=== PATIENT | male | born 1970 | race Caucasian/White ===

== ENCOUNTER → 2019-04-05 07:46 | Outpatient (CLI) | payer OTHER, SELFPAY ==
--- NOTE | ~2019-04-05 | CT_ITS ---
EXAMINATION: CT chest wo con DATE: 04/05/2019 08:07 INDICATION: Lung nodule TECHNIQUE: Computed tomography (CT) of the chest was performed without intravenous contrast. The dose -length product (DLP) was 517.14 mGy-cm. Automated exposure control and iterative reconstruction tech nique were employed. COMPARISON: 07/04/2018, 01/25/2018, 10/24/2017 FINDINGS: There is a stable 1.7 cm nodule of the left lower lobe. Additional stable nodules of the le ft lung measure up to 3 mm. No new pulmonary nodules are identified. There is mild emphysema. There i s no pleural effusion or pneumothorax. No pathologically enlarged thoracic lymph nodes are identified . The heart size is normal. There is moderate thoracic spondylosis. IMPRESSION: 1. Stable left lower lobe lung nodule, likely a hamartoma. CT follow-up in seven months (October 2019) would demonstrate two years of stability and further support a benign etiology. Reviewed, dictated and finalized at location A. [facility] IMPRESSION: 1. Stable left lower lobe lung nodule, likely a hamartoma. CT follow-up in ryland n months (October 2019) would demonstrate two years of stability and further sup port a benign etiology.
== END ==
PROVIDERS: PCP Nurse Practitioner Family; Visit Provider Nurse Practitioner Family
DX: J98.4 Other disorders of lung (principal)
CPT/HCPCS: 71250

== ENCOUNTER 2019-06-01 19:24 | Emergency (ER) | payer OTHER, SELFPAY ==
--- NOTE | 2019-06-01 19:31 | ECG_ITS ---
Measurements Intervals [place] Rate: 53 P: 44 WA: 179 QRS: -22 QRSD: 78 T: -14 QT: 395 QTc: 373 Interpretive Statements SINUS BRADYCARDIA BORDERLINE ECG Electronically Signed On 06-02-2019 7:11:53 CDT by Amandeep Wooten D.O.
[2019-06-01 19:40] VITALS: BP 154/96; PULSE 55; RESP 20; TEMP 36.7; O2SAT 98
--- NOTE | 2019-06-01 19:50 | ED.CHESTPAIN ---
HPI - Chest Pain General Chief Complaint: Chest Pain Stated Complaint: sob/chest pn Time Seen by Provider: 06/01/19 19:34 Source: patient and RN notes reviewed Mode of arrival: ambulatory Limitations: no limitations History of Present Illness HPI narrative: Patient presents today complaining of a 3-day history of intermittent shortness of breath and sternal/left chest discomfort. He describes the pain as discomfort, and dull to sharp . Both of these symptoms worsen with exertion. Denies nausea, vomiting, abdominal pain, weakness, dizziness, or lightheadedness. He does report intermittent tingling in the left arm. He reports feeling like his heart is racing 3-4 times per day since onset of symptoms. Denies cough or fever. Denies any cardiac history, hypertension, hypercholesterolemia. Patient has history of GERD and takes Nexium. 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 MD complaint: chest pain and other (Shortness of breath) Related Data Home Medications Medication Instructions Recorded Confirmed esomeprazole magnesium [Nexium 20 mg PO DAILY 01/29/19 06/01/19 24HR] Allergies Allergy/AdvReac Type Severity Reaction Status Date / Time No Known Allergies Allergy Verified 06/01/19 19:40 Review of Systems Review of Systems: Narrative: CONSTITUTIONAL: Denies body aches, fever, chills, or sweats. EYES: Denies visual changes, redness, or discharge. ENT: Denies rhinorrhea, congestion, sore throat, or otalgia. CARDIOVASCULAR: Denies chest pain, palpitations, or edema. RESPIRATORY: + Chest pain, shortness of breath GASTROINTESTINAL: Denies abdominal pain, nausea, vomiting, or diarrhea. GENITOURINARY: Denies dysuria or hematuria. SKIN: Denies rash, itching, or wounds. MUSCULOSKELETAL: Denies back pain, joint pain, or myalgia. NEUROLOGIC: Denies headache, numbness, or weakness.+ Tingling in the left arm PSYCH: Denies depression or anxiety. [facility] Past Medical History Medical History (Updated 06/01/19 @ 19:58 by Magui Car, BRAKE ADJUSTER, ) GERD (gastroesophageal reflux disease) Social History Social History Smoking status: Former smoker Second hand tobacco smoke exposure: No Smoking end date: 03/08/01 Alcohol intake: current Comments At time of signature, I have reviewed and agree with nursing past medical, surgical, social and family history unless otherwise noted. Please see nursing chart for further information. There is no relevant family history pertinent to the presenting complaint Exam Narrative: Exam Narrative: GENERAL: Well-appearing, well-nourished. HEAD: Normocephalic, atraumatic. EYES: EOMI. No redness or drainage. Conjunctivae normal. ENT: Mucous membranes pink and moist. Nares clear. NECK: Normal AROM. Supple. No lymphadenopathy. CHEST: + mildly labored when speaking. Clear to auscultation. Chest is nontender, but patient localizes discomfort to the sternum and left nipple area. HEART: + Bradycardia, heart rate 58 upon auscultation. Gallop noted. Normal peripheral pulses radial and posterior tibial bilaterally. ABDOMEN: Soft, nondistended, normal active bowel sounds.+ Mild epigastric tenderness. MUSCULOSKELETAL: No bony tenderness. Hand regulatory consultant equal and strong. Foot push and pulls equal and strong. EXTREMITIES: Normal range of motion. No edema. SKIN: Warm, dry, no rash. Capillary refill normal. No diaphoresis. NEURO: No focal deficits. Alert and oriented x3. Gait steady. PSYCH: Normal affect. No signs of depression or anxiety. Course Vital Signs Vital signs: Vital Signs Temperature 98.1 F 06/01/19 19:40 Pulse Rate 55 L 06/01/19 19:40 Respiratory Rate 20 06/01/19 19:40 Blood Pressure 154/96 H 06/01/19 19:40 Pulse Oximetry 98 06/01/19 19:40 Temperature 98.1 F 06/01/19 19:40 Pulse Rate 55 L 06/01/19 19:40 Respiratory Rate 20 06/01/19 19:40 Blood Pressure 154/96 H 06/01/19 19:40 Pulse Oximetry
== END 2019-06-01 19:54 | disposition short-term general hospital (02) ==
LOC: EXPTROY 19:29
PROVIDERS: Emergency Provider Nurse Practitioner; PCP Family Medicine
DX: R07.9 Chest pain, unspecified (principal); R06.02 Shortness of breath; R00.1 Bradycardia, unspecified; F17.200 Nicotine dependence, unspecified, uncomplicated; K21.9 Gastro-esophageal reflux disease without esophagitis
CPT/HCPCS: 93005; 99213; G0463

== ENCOUNTER 2019-06-01 20:03 | Observation (INO) | payer OTHER, SELFPAY ==
--- NOTE | ~2019-06-01 | XR_ITS ---
EXAMINATION: XR chest 2V DATE: 06/01/2019 20:46 INDICATION: Chest pain. TECHNIQUE: Frontal and lateral views of the chest were obtained. COMPARISON: Chest 2 views 06/25/2014, 04/03/2010, chest CT 04/05/2019, PET/CT 01/25/2018 FINDINGS: Again seen is a 1.5 cm nodule in basilar left lower lobe. No pleural effusion or pneumothor ax. The heart size is normal. IMPRESSION: 1. Chronic left lower lobe pulmonary nodule, likely a hamartoma. Reviewed, dictated and finalized at location A.
[2019-06-01 20:17] VITALS: BP 156/102; PULSE 51; RESP 21; TEMP 36.2; O2SAT 98
--- NOTE | 2019-06-01 20:19 | ECG_ITS ---
Measurements Intervals [place] Rate: 56 P: 49 OR: 180 QRS: -13 QRSD: 75 T: -16 QT: 394 QTc: 382 Interpretive Statements SINUS BRADYCARDIA WITH SINUS ARRHYTHMIA DELAYED PRECORDIAL R/S TRANSITION BORDERLINE T WAVE ABNORMALITY- INFERIOR LEADS BASELINE ARTIFACT- I BORDERLINE ECG Electronically Signed On 06-02-2019 7:12:48 CDT by Amandeep Wooten D.O.
--- NOTE | 2019-06-01 20:24 | ED.CHESTPAIN ---
HPI - Chest Pain General Chief Complaint: Chest Pain Stated Complaint: CP Time Seen by Provider: 06/01/19 20:06 Source: patient Mode of arrival: ambulatory Limitations: no limitations History of Present Illness HPI narrative: Pt is a 49 y/o male who presents to the ED with c/o constant mid/left chest discomfort since Wednesday. He states that he occasionally gets a sharp pain. He also reports lt arm tingling and epigastric ABD pain. His CP is aggravated with exertion. Pt denies SOB, N/V, or a cough. He denies a H/O smoking, HTN, HLD, or cardiac issues. He states that his father has a H/O cardiac issues. MD complaint: chest pain and chest discomfort Onset (ago): day(s) (3) Timing of current episode: episodic (sharp) and constant (discomfort) Pain location: substernal and left chest Pain radiation: left arm (tingling) Quality: sharp and other (discomfort) Exacerbating factors: exertion Associated symptoms: other (epigastric pain) Related Data Home Medications Medication Instructions Recorded Confirmed Nexium 24HR 20 mg PO DAILY 01/29/19 06/01/19 One-A-Day Men's 50 Plus 1 tab/day PO DAILY 06/01/19 06/01/19 Allergies Allergy/AdvReac Type Severity Reaction Status Date / Time No Known Allergies Allergy Verified 06/01/19 20:29 Review of Systems Review of Systems: All systems reviewed & are unremarkable except as noted in HPI and below Cardiovascular: Cardiovascular: Reports chest pain Respiratory: Respiratory: Denies cough and Denies dyspnea Gastrointestinal: Gastrointestinal: Reports abdominal pain (epigastric), Denies nausea and Denies vomiting Neurologic: Reports tingling (lt arm) [facility] Past Medical History Medical History (Updated 06/04/19 @ 12:16 by Jose Melo DO) GERD (gastroesophageal reflux disease) Kidney stones Surgical History Surgical History (Updated 06/01/19 @ 20:33 by Frank Snider) H/O hand surgery left H/O inguinal hernia repair H/O lateral meniscus repair of left knee Social History Social History Smoking status: Former smoker Second hand tobacco smoke exposure: No Smoking end date: 03/08/01 Alcohol intake: current Gender identity (if verbalized by the patient): Male Exam Narrative: Exam Narrative: APPEARANCE: No acute distress, nontoxic, resting in bed EYES: EOMI HEENT: Normocephalic, atraumatic, OMM RESPIRATORY: No respiratory distress Clear to auscultation bilaterally with no rhonchi wheezing or rales. CARDIOVASCULAR: Regular rate and rhythm without murmurs rubs or gallops. ABDOMINAL: Soft, nontender, nondistended, no rebound or guarding MUSCULOSKELETAl: Moves all extremities. No clubbing, cyanosis or edema. NEURO: Awake and alert. Following commands, speech normal, no focal deficits SKIN:: Warm, dry. No rashes lesions or abrasions PSYCHIATRIC: Normal affect/mood, Course Course Emergency Course: Discussed with patient and family results of workup and diagnosis. Discussed need for admission. Patient and family understand and agree to current treatment plan Consultations Consultation #1: Discussed case with Dr. Last, the steward/stewardess night. Accepted admission to the [facility]. Date: 06/01/19 Time: 21:14 Vital Signs Vital signs: Vital Signs Temperature 97.1 F L 06/01/19 20:17 Pulse Rate 51 L 06/01/19 20:17 Respiratory Rate 21 H 06/01/19 20:17 Blood Pressure 156/102 H 06/01/19 20:17 Pulse Oximetry 98 06/01/19 20:17 Temperature 98.1 F 06/02/19 07:45 Pulse Rate 66 06/02/19 10:00 Respiratory Rate 16 06/02/19 07:45 Blood Pressure 129/82 06/02/19 07:45 Pulse Oximetry 97 06/02/19 07:45 MDM - Chest Pain Lab Data Result diagrams: 06/01/19 20:33 06/01/19 20:33 Labs: Lab Results 06/01/19 06/01/19 06/01/19 Range/Units 20:33 20:33 20:33 WBC 7.9 (4.5-10.0) K/mm3 RBC 4.44 L (4.6-6.20) M/mm3 Hgb 13.5 L (14.0-18.0) g/dL Hct 40.7 L (
[2019-06-01] MEDS: ASPIRIN 81 MG CHEWABLE TABLET 324 MG PO (20:31)
[2019-06-01 20:38] VITALS: PULSE 59; O2SAT 98
[2019-06-01 20:40] LABS: Basophils Absolute Auto 0.1 K/mm3 (0.0-0.1); Basophils Percent Auto 0.6 % (0.2-1.2); Eosinophils Absolute Auto 0.2 K/mm3 (0-0.3); Eosinophils Percent Auto 2.4 % (0-4.4); Hematocrit 40.7 % (42.0-52.0); Hemoglobin 13.5 g/dL (14.0-18.0); Immature Granulocyte Absolute 0.02 K/mm3 (0.00-0.031); Immature Granulocyte Percent A 0.3 % (0-0.5); Lymphocytes Absolute Auto 2.81 K/mm3 (0.9-3.2); Lymphocytes Percent Auto 35.7 % (18.3-44.2); Mean Corpuscular HGB Conc 33.2 g/dl (32-36); Mean Corpuscular Hemoglobin 30.4 pg (26-34); Mean Corpuscular Volume 91.7 fl (80-100); Mean Platelet Volume 10.6 fl (7.4-10.4); Monocytes Absolute Auto 0.6 K/mm3 (0.1-0.6); Neutrophils Absolute Auto 4.2 K/mm3 (1.3-6.7); Platelet Count Result 210 k/mm3 (150-375); Red Blood Count 4.44 M/mm3 (4.6-6.20); Red Cell Distribution Width 12.5 % (11.5-14.5); White Blood Count 7.9 K/mm3 (4.5-10.0)
[2019-06-01 20:50] LABS: Prothrombin Time 12.8 Seconds (11.1-14.7)
[2019-06-01 20:51] LABS: Partial Thromboplastin Time 35.3 SECONDS (22.3-36.8)
[2019-06-01 20:52] LABS: Alanine Aminotransferase 19 U/L (4-50); Albumin Level 4.2 g/dL (3.5-5.1); Alkaline Phosphatase 69 U/L (38-126); Aspartate Amino Transferase 27 U/L (17-59); Bilirubin,Total 0.4 mg/dL (0.2-1.3); Blood Urea Nitrogen 15 mg/dL (9-20); Calcium 9.3 mg/dL (8.4-10.2); Carbon Dioxide 27 mmol/L (22-30); Chloride 108 mmol/L (98-107); Estimated CRCL calculation 93 ml/min; Estimated Glomerular Filt Rate > 60; Glucose 99 mg/dL (75-110); Lipase 93 U/L (23-300); Sodium 138 mmol/L (137-145)
[2019-06-01 21:00] LABS: D Dimer 0.27 ug/mL (<0.48)
[2019-06-01 21:04] LABS: Troponin I < 0.012 ng/mL (0.000-0.034)
[2019-06-01 21:21] VITALS: BP 126/85; PULSE 55; RESP 19; O2SAT 98
[2019-06-01] MEDS: KETOROLAC 30 MG/ML VIAL (*BKC) IV PUSH (21:27)
[2019-06-01 21:54] VITALS: TEMP 36.2
[2019-06-01 21:56] VITALS: BMI 31.0
[2019-06-01 22:00] VITALS: BP 170/89; PULSE 45; RESP 17; TEMP 36; O2SAT 100
--- NOTE | 2019-06-01 23:22 | ECG_ITS ---
Measurements Intervals [place] Rate: 47 P: 32 ID: [id number] QRS: -14 QRSD: 80 T: -30 QT: 408 QTc: 364 Interpretive Statements SINUS BRADYCARDIA DELAYED PRECORDIAL R/S TRANSITION CONSIDER INFERIOR INFARCT, AGE INDETERMINATE ABNORMAL ECG Electronically Signed On 06-02-2019 7:17:30 CDT by Amandeep Wooten D.O.
[2019-06-01 23:46] LABS: Cholesterol 140 mg/dL (0-200); HDL Direct 25 mg/dL; Triglycerides 108 mg/dL (<150)
[2019-06-01 23:55] LABS: Troponin I < 0.012 ng/mL (0.000-0.034)
[2019-06-01 23:57] LABS: LDL Cholesterol Direct 94 mg/dL
[2019-06-02] VITALS: BP 151/95; PULSE 51; PULSE 58; RESP 13; TEMP 36.2; O2SAT 98
--- NOTE | 2019-06-02 | EST_ITS ---
Patient Info Name: Cm Fischer Age: 49 years : 1970 Gender: Male Ht: 67 in Wt: 197 lbs BSA: 2.08 m2 Technical Quality: Good Exam Date: 06/02/2019 8:02 AM Exam Location: [facility] Patient Status: Inpatient Admit Date: 06/01/2019 Staff Ordering Physician: Joesph Last MD Dust Mill Operator: Jayla Espana RDCS Attending Provider: Leslee Mueller DO Exercise Technologist: Rodger Roger RDCS, RT Exercise Physician: Dillon Ponce MD Exam Type: CA stress echo Study Info Indications R07.89 - Other chest pain Treadmill exercise stress echocardiogram is performed. Summary 1. Normal left venticular systolic function with no regional wall motion abnormalities noted at rest. 2. No regional wall motion abnormalities noted post stress. 3. Left ventricular systolic function is normal with an estimated ejection fraction of 5560 % at rest. 4. Normal augmentation of all wall segments without evidence of ischemia with stress. Recommendations * No recommendations. Stress Echo Findings Left Ventricle Normal left venticular systolic function with no regional wall motion abnormalities noted at rest. No regional wall motion abnormalities noted post stress. Normal augmentation of all wall segments without evidence of ischemia with stress. Left ventricular systolic function is normal with an estimated ejection fraction of 5560 % at rest. Ventricles Name Value Normal LV Fractional Shortening/Ejection Fraction 2D/MM Visually Estimated EF 5,560 % 52-72 Protocol: Phillip Stress ECG Details Stage: REST Duration (min): 21 min : 23 sec Speed (mph): 0.0 Grade (%): 0 HR (bpm): 54 SBP (mmHg): 139 DBP (mmHg): 82 METS: --- Stage: REST Duration (min): 47 min : 28 sec Speed (mph): 0.0 Grade (%): 0 HR (bpm): 59 SBP (mmHg): 139 DBP (mmHg): 82 METS: --- Stage: STAGE 1 Duration (min): 1 min : 0 sec Speed (mph): 1.7 Grade (%): 10 HR (bpm): 85 SBP (mmHg): 139 DBP (mmHg): 82 METS: --- Stage: STAGE 1 Duration (min): 2 min : 0 sec Speed (mph): 1.7 Grade (%): 10 HR (bpm): 90 SBP (mmHg): 139 DBP (mmHg): 82 METS: --- Stage: STAGE 1 Duration (min): 3 min : 0 sec Speed (mph): 1.7 Grade (%): 10 HR (bpm): 91 SBP (mmHg): 165 DBP (mmHg): 94 METS: --- Stage: STAGE 2 Duration (min): 1 min : 0 sec Speed (mph): 2.5 Grade (%): 12 HR (bpm): 100 SBP (mmHg): 165 DBP (mmHg): 94 METS: --- Stage: STAGE 2 Duration (min): 2 min : 0 sec Speed (mph): 2.5 Grade (%): 12 HR (bpm): 107 SBP (mmHg): 167 DBP (mmHg): 93 METS: --- Stage: STAGE 2 Duration (min): 3 min : 0 sec Speed (mph): 2.5 Grade (%): 12 HR (bpm): 104 SBP (mmHg): 167 DBP (mmHg): 93 METS: ---
[2019-06-02 02:00] VITALS: PULSE 48
[2019-06-02 02:53] LABS: Troponin I < 0.012 ng/mL (0.000-0.034)
--- NOTE | 2019-06-02 03:21 | ECG_ITS ---
Measurements Intervals [place] Rate: 49 P: 16 PA: 196 QRS: -24 QRSD: 82 T: -16 QT: 404 QTc: 367 Interpretive Statements SINUS BRADYCARDIA DELAYED PRECORDIAL R/S TRANSITION CONSIDER INFERIOR INFARCT, AGE INDETERMINATE ABNORMAL ECG Electronically Signed On 06-02-2019 7:22:03 CDT by Amandeep Wooten D.O.
[2019-06-02 04:00] VITALS: BP 126/82; PULSE 51; RESP 16; TEMP 36.3; O2SAT 98
[2019-06-02 07:45] VITALS: BP 129/82; PULSE 52; PULSE 55; RESP 16; TEMP 36.7; O2SAT 97
--- NOTE | 2019-06-02 07:53 | PC.NURSE ---
DOWN VIA WC FOR STRESS ECHOCARDIOGRAM.
--- NOTE | 2019-06-02 08:47 | PM.SD ---
Same Day Admit/Disch: HPI History of Present Illness Chief complaint: chest pain Narrative: Cm Fischer is a 49 year old male with PMH if GERD and hx of smoking who experienced episodes of sharp chest discomfort over last few days. pt presented to [facility] last night and was admitted for observation. he denies any previuous cardiac problems. States that had stress test few years ago which was negative. Does have hyperlipidemia for which takes medications. Pt was seen and examined, chart was reviewed, case was d.w pt's nurse. [facility] Past Medical History Medical History (Updated 06/02/19 @ 09:53 by Dillon Ponce MD) GERD (gastroesophageal reflux disease) Kidney stones Surgical History Surgical History (Updated 06/01/19 @ 20:33 by Frank Snider) H/O hand surgery left H/O inguinal hernia repair H/O lateral meniscus repair of left knee Social History Social History Smoking status: Former smoker Second hand tobacco smoke exposure: No Smoking end date: 03/08/01 Alcohol intake: current Gender identity (if verbalized by the patient): Male Same Day Admit/Disch: Med Pre-admit Medications Home Medications Medication Instructions Recorded Confirmed Type Nexium 24HR 20 mg PO DAILY 01/29/19 06/01/19 History One-A-Day Men's 50 Plus 1 tab/day PO DAILY 06/01/19 06/01/19 History Exam Const: General: alert and awake; No acute distress HENMT: Head: normal to inspection and atraumatic Ears: hearing grossly normal bilaterally Face and sinus: normal facial exam Eyes: General: appearance normal, both eyes and all related structures Pupils: Equal, round and reactive pupils present EOM: EOMs intact bilaterally Neck: Neck: normal visual inspection and no JVD Chest: Chest palpation & inspection: normal inspection of the chest Resp: Effort & Inspection: normal respiratory effort and no respiratory distress Auscultation: clear to auscultation bilaterally Cardio: Jugular venous distension: no JVD Rate: regular rate Heart sounds: S1 normal heart sound present, S2 normal heart sound present and no murmurs GI: Inspection: normal to inspection GI Palp: Yes Soft to palpation, No Tenderness to palpation present (GI) and Yes No hepatosplenomegaly present Auscultation: normal bowel sounds Skin: General skin exam: normal color Neuro: Cranial nerves: Yes Equal, round and reactive pupils present Extrem: General: normal to inspection and no clubbing, cyanosis or edema DS: Data Data Completed and Pending Labs on day of discharge: Labs from last 24 hours 06/02/19 06/02/19 06/01/19 02:20 02:20 23:26 WBC RBC Hgb Hct MCV MCH MCHC RDW Plt Count MPV Immature Gran % (Auto) Neut % (Auto) Lymph % (Auto) [place] % (Auto) Eos % (Auto) Baso % (Auto) Lymph # (Auto) [place] # (Auto) Eos # (Auto) Baso # (Auto) Abs Immat Gran (auto) Absolute Neuts (auto) Absolute Nucleated RBC Nucleated RBC % PT INR APTT D-Dimer Sodium Potassium Chloride Carbon Dioxide BUN Creatinine Estim Creat Clear Calc Estimated GFR Glucose Calcium Total Bilirubin AST ALT Alkaline Phosphatase Troponin I Cancelled < 0.012 Total Protein Albumin Triglycerides 108 Cholesterol 140 LDL Cholesterol Direct 94 HDL Direct 25 Lipase 06/01/19 06/01/19 06/01/19 23:26 20:35 20:33 WBC RBC Hgb Hct MCV MCH MCHC RDW Plt Count MPV Immature Gran % (Auto) Neut % (Auto) Lymph % (Auto) [place] % (Auto) Eos % (Auto) Baso % (Auto) Lymph # (Auto) [place] # (Auto) Eos # (Auto) Baso # (Auto) Abs Immat Gran (auto) Absolute Neuts (auto) Absolute Nucleated RBC Nucleated RBC % PT INR APTT D-Dimer 0.27 Sodium Potassium Chloride
--- NOTE | 2019-06-02 08:48 | PC.NURSE ---
RETURNS VIA WC TO DIGITAL PHOTOGRAPHER 5 S/P STRESS ECHO.
[2019-06-02 10:00] VITALS: PULSE 66
--- NOTE | 2019-06-02 11:05 | PC.NURSE ---
DISCHARGED HOME, OUT AMBULATORY, WITH ALL PERSONAL BELONGINGS AND DISCHARGE INSTRUCTIONS TO OWN VEHICLE. VOICES NO C/O. STEADY GAIT. NO DISTRESS NOTED.
== END 2019-06-02 11:05 | disposition home or self-care (01) ==
LOC: ANHED 21:15 → ANHCPC 06-02 10:43
PROVIDERS: Admitting Provider Specialist; Emergency Provider Emergency Medicine; PCP Family Medicine; Visit Provider Internal Medicine Cardiovascular Disease
DX: R07.89 Other chest pain (principal); K21.9 Gastro-esophageal reflux disease without esophagitis; Z87.442 Personal history of urinary calculi; Z87.891 Personal history of nicotine dependence
CPT/HCPCS: 36415; 71046; 80053; 80061; 83690; 84484; 85025; 85380; 85610; 85730; 93005; 93351; 96374; 99285; A9270; G0378; J1885

== ENCOUNTER 2020-02-28 13:45 | Outpatient (CLI) | payer OTHER, SELFPAY | END 2020-02-28 13:46 | disposition home or self-care (01) | LOC: ANHAUDIO 13:47 | PROVIDERS: PCP Family Medicine; Visit Provider Otolaryngology | DX: H93.19 Tinnitus, unspecified ear (principal); H90.41 Sensorineural hearing loss, unilateral, right ear, with unrestricted hearing on the contralateral side | CPT/HCPCS: 92557; 92567 ==

== ENCOUNTER 2020-03-29 07:30 | Outpatient (RCR) | payer OTHER, SELFPAY | END 2020-03-29 23:59 | disposition home or self-care (01) | LOC: ANHAUDIO 07:30 | PROVIDERS: PCP Family Medicine; Visit Provider Family Medicine | DX: Z46.1 Encounter for fitting and adjustment of hearing aid (principal) | CPT/HCPCS: 99199; V5257 ==

== ENCOUNTER → 2020-04-16 08:12 | Outpatient (CLI) | payer OTHER, SELFPAY ==
--- NOTE | ~2020-04-16 | CT_ITS ---
EXAMINATION: CT diagnostic chest wo con DATE: 04/16/2020 08:27 INDICATION: Follow-up left lower lung nodule. TECHNIQUE: Computed tomography (CT) of the chest was performed without intravenous contrast. The dose -length product was 177.32 mGy-cm. Automated exposure control and iterative reconstruction technique were employed. COMPARISON: Comparison to multiple prior studies sequentially, with oldest reviewed study dated 01/07. FINDINGS: There is a stable left lower lobe nodule measuring 1.6 x 1.3 cm with adjacent pleural tail. No endobronchial lesions. Mild emphysema. There are small calcified pulmonary nodules bilaterally. N o new pulmonary nodules or masses. No endobronchial lesions. Stable fissural nodule on the left, like ly benign, measuring 4 mm. Mild thoracic spondylosis. No thoracic lymphadenopathy. Heart size is norm al. IMPRESSION: 1. Stable pulmonary nodules, largest measuring 1.6 cm maximum dimension, likely benign hamartoma. Fol low-up low dose CT chest in 12 months recommended. Reviewed, dictated and finalized at location B. SUPERVISOR IMPRESSION: 1. Stable pulmonary nodules, largest measuring 1.6 cm maximum dimension, likely benign hamartoma. Follow-up low dose CT chest in 12 months recommended.
== END ==
PROVIDERS: PCP Family Medicine; Visit Provider Nurse Practitioner Family
DX: R91.8 Other nonspecific abnormal finding of lung field (principal)
CPT/HCPCS: 71250

== ENCOUNTER 2020-05-02 09:30 | Outpatient (CLI) | payer OTHER, SELFPAY ==
--- NOTE | ~2020-05-02 | XR_ITS ---
EXAMINATION: XR ribs RT 2V w CXR 2V EXAM DATE: 05/02/2020 09:52 INDICATION: Fell 5 days ago with persistent right mid anterior rib pain. TECHNIQUE: Frontal projection of the upper right ribs, frontal projection of the lower right ribs, ob lique projection of the right ribs, frontal and lateral chest x-ray(s) for interpretation. Correlatio n is made to chest x-ray 06/01/2019. FINDINGS: There are no displaced acute right rib fractures identified. There is no soft tissue abno rmality seen. Consider educating patient that even if there is a radiographically occult nondisplaced rib fracture, there is no specific treatment other than to refrain from activity that prevents heali ng. The lungs are clear. There are no pleural effusions. The cardiomediastinal silhouette is within nor mal limits. There is no pneumothorax suspected. IMPRESSION: No displaced right rib fractures. Reviewed, dictated and finalized at location B. OLOGY AIDE
--- NOTE | ~2020-05-02 | XR_ITS ---
EXAMINATION: XR thoracic spine 3V EXAM DATE: 05/02/2020 09:52 INDICATION: Right rib pain. TECHNIQUE: Frontal and lateral projections of the thoracic spine as well as lateral swimmers projecti on of the upper thoracic spine for interpretation. There is no prior study for comparison. FINDINGS: There is mild to moderate mid and lower thoracic disc disease. No appreciable scoliosis. M ild loss of mid and lower thoracic disc height without acute fracture line suspected. The vertebral b odies are aligned in the AP dimension. There are no bony erosions identified. Paraspinal soft tissue is unremarkable. IMPRESSION: Mild to moderate thoracic spondylosis. Reviewed, dictated and finalized at location B. NGUAL MEDICAL RECEPTIONIST
== END 2020-05-02 09:31 | disposition home or self-care (01) ==
PROVIDERS: PCP Family Medicine; Visit Provider Family Medicine
DX: M47.814 Spondylosis without myelopathy or radiculopathy, thoracic region (principal)
CPT/HCPCS: 71046; 71100; 72072

== ENCOUNTER 2020-09-06 15:31 | Emergency (ER) | payer OTHER, SELFPAY ==
[2020-09-06] VITALS (14 sets, daily range): BP systolic 137–157; BP diastolic 81–98; PULSE 48–57; RESP 15–22; TEMP 36.3; O2SAT 93–99
--- NOTE | ~2020-09-06 | CT_ITS ---
EXAMINATION: CT brain wo con DATE: 09/06/2020 16:03 INDICATION: Headache. TECHNIQUE: Computed tomography (CT) of the head was performed without intravenous contrast. The mA wa s adjusted according to patient size. Iterative reconstruction technique was employed. The dose-lengt h product was 605.33 mGy-cm. COMPARISON: None FINDINGS: There is no intracranial hemorrhage, acute infarction, or abnormal intracranial mass lesion . The ventricles are normal in size. There is mild mucosal thickening in the paranasal sinuses. The m astoid air cells are normal. The orbits are normal. IMPRESSION: 1. Normal brain. Reviewed, dictated and finalized at location A. IMPRESSION: 1. Normal brain.
--- NOTE | ~2020-09-06 | CT_ITS ---
EXAMINATION: CTA brain carotid EXAM DATE: 09/06/2020 17:57 INDICATION: Headache for 3 days, right parieto-occipital region. TECHNIQUE: Spiral CTA of the carotid arteries was performed with intravenous injection 100 cc of Omn ipaque 350. Axial, coronal, sagittal reformatted images reviewed. Additional reformatted images crea elyse on dedicated 3-D workstation. NASCET comparable standard used to assess the degree of arterial s tenosis. Spiral CT angiogram cerebral arteries performed with the same intravenous injection of cont rast. Source images of the brain CTA transferred to dedicated workstation for 3-D rotational image cr eation. Coronal, sagittal maximum intensity pixel images also reviewed. The dose-length product (DL P) for this examination was 1036.63 mGy-cm. The exposure was tailored according to patient size, an d iterative reconstruction (ASIR) was used as additional dose reduction technique. Correlation made t o prior noncontrast head CT earlier same date. FINDINGS: Bilateral carotid bulb 0% stenosis. The right vertebral artery is dominant. There is no ca rotid or vertebral basilar arterial dissection or fibromuscular dysplasia. There are no cerebral tarun ry aneurysms. There is symmetric cerebral artery arborization. The sagittal, transverse and sigmoid s inuses enhance normally, no venous sinus thrombosis. Internal cerebral veins also enhance normally. Incidental Findings: Mild to moderate cervical spondylosis. IMPRESSION: 1. No acute carotid or intracranial findings. 2. Bilateral carotid 0% stenosis. Reviewed, dictated and finalized at location A.
--- NOTE | 2020-09-06 16:24 | ECG_ITS ---
Measurements Intervals [place] Rate: 50 P: 32 OR: 175 QRS: -18 QRSD: 90 T: -31 QT: 426 QTc: 390 Interpretive Statements SINUS BRADYCARDIA WITH SINUS ARRHYTHMIA INFERIOR INFARCT, AGE INDETERMINATE BORDERLINE T WAVE ABNORMALITY- ANTEROLATERAL LEADS BASELINE ARTIFACT- I, II, III, AVR, AVF, V1, V3-V6 ABNORMAL ECG Electronically Signed On 09-06-2020 17:05:42 CDT by Amandeep Wooten D.O.
[2020-09-06] MEDS: KETOROLAC 30 MG/ML VIAL (*BKC) IV PUSH (16:42)
[2020-09-06] MEDS: METAXALONE 800 MG TABLET PO (16:42)
[2020-09-06 16:51] LABS: Basophils Absolute Auto 0.1 K/mm3 (0.0-0.1); Basophils Percent Auto 0.9 % (0.2-1.2); Eosinophils Absolute Auto 0.2 K/mm3 (0-0.3); Eosinophils Percent Auto 3.4 % (0-4.4); Hematocrit 40.1 % (42.0-52.0); Hemoglobin 13.2 g/dL (14.0-18.0); Immature Granulocyte Absolute 0.04 K/mm3 (0.00-0.031); Immature Granulocyte Percent A 0.6 % (0-0.5); Lymphocytes Absolute Auto 2.42 K/mm3 (0.9-3.2); Lymphocytes Percent Auto 35.9 % (18.3-44.2); Mean Corpuscular HGB Conc 32.9 g/dl (32-36); Mean Corpuscular Hemoglobin 30.5 pg (26-34); Mean Corpuscular Volume 92.6 fl (80-100); Monocytes Absolute Auto 0.6 K/mm3 (0.1-0.6); Monocytes Percent Auto 9.2 % (2.6-8.5); Neutrophils Absolute Auto 3.4 K/mm3 (1.3-6.7); Platelet Count Result 204 k/mm3 (150-375); Red Blood Count 4.33 M/mm3 (4.6-6.20); Red Cell Distribution Width 12.5 % (11.5-14.5); White Blood Count 6.7 K/mm3 (4.5-10.0)
[2020-09-06 17:00] LABS: Prothrombin Time 12.6 Seconds (11.1-14.7)
[2020-09-06 17:06] LABS: Anion Gap 12 mmol/L (8-16); Blood Urea Nitrogen 16 mg/dL (9-20); Calcium 8.9 mg/dL (8.4-10.2); Carbon Dioxide 20 mmol/L (22-30); Chloride 110 mmol/L (98-107); Estimated Glomerular Filt Rate > 60; Glucose 118 mg/dL (75-110); Potassium 3.7 mmol/L (3.4-5.0); Sodium 142 mmol/L (137-145)
[2020-09-06 17:18] LABS: Troponin I < 0.012 ng/mL (0.000-0.034)
--- NOTE | 2020-09-06 18:53 | ED.GENADULT ---
HPI - General Adult General Chief complaint: Headache Stated complaint: BURNING HEADACHE X3D Time Seen by Provider: 09/06/20 16:12 Source: patient, family and RN notes reviewed Mode of arrival: ambulatory Limitations: no limitations History of Present Illness HPI narrative: Patient is a 50-year-old male who presents to emergency department for evaluation of posterior head pain as well as neck pain for the last 2 days noted as a burning intermittent pain of the scalp worse with activity and movement. Patient notes that the crease of the skin in the posterior scalp has irritation with palpation. Patient also notes cervical spine tenderness. Patient notes that he had been in a tight spot at work which he thought maybe he could have injured his neck. Patient has taken [id number]-[id number] anti-inflammatories with some improvement. Patient denies any other complaints or similar occurrence in the past and on arrival does not appear distressed or uncomfortable Related Data Home Medications Medication Instructions Recorded Confirmed zsthvju-xybk-bmohs-oreg-capryl 1 cap PO 09/06/20 Allergies Allergy/AdvReac Type Severity Reaction Status Date / Time No Known Allergies Allergy Verified 05/02/20 08:27 Review of Systems Review of Systems: All systems reviewed & are unremarkable except as noted in HPI and below PMFSH Past Medical History Medical History History of kidney stones Kidney stones Lumbar spondylosis Surgical History Surgical History H/O hand surgery (~2009) left H/O inguinal hernia repair (~1978) b/l - H/O lateral meniscus repair of left knee (~2010) Family History Family History Mother Diabetes mellitus Family history of malignant neoplasm of ovary Father Family history of congestive heart failure Social History Social History Smoking packs per day: 1 Smoking cigarettes per day: 20.0 Years smoked: 15 Smoking pack-years: 15.00 Smoking status: Former smoker Tobacco type: cigarettes Second hand tobacco smoke exposure: No Smoking end date: 03/08/01 Alcohol intake: current Substance use: never Substance use type: does not use Gender identity (if verbalized by the patient): Male Exam Narrative: Exam Narrative: GENERAL: Well-appearing, well-nourished, and in no acute distress. HEAD: Normocephalic, atraumatic. EYES: PERRLA and EOMI. ENT: Nares clear, no rhinorrhea or epistaxis. Mucous membranes moist. NECK: Supple. No adenopathy or masses. CHEST: Clear to auscultation. No respiratory distress. No wheezes rales or rhonchi HEART: Regular rate and rhythm. No murmur heard. Normal peripheral pulses. EXTREMITIES: Normal range of motion. No edema. Patient with paraspinal midline cervical tenderness no deformities patient with tenderness of the posterior scalp where he has a crease in the skin of the scalp there is no erythema or other abnormalities SKIN: Warm, dry, no rash. NEURO: No focal deficits. Alert and oriented x3. Cranial nerves II through XII grossly intact PSYCH: Normal mood and affect. Course Course Emergency Course: Patient presented with headache and neck pain was evaluated no high risk evaluations or concerning findings will be discharged for outpatient reevaluation with primary care will be tried with anti-inflammatories and muscle relaxers. ABCs and vital signs intact and stable hemodynamically stable Vital Signs Vital signs: Vital Signs Temperature 97.4 F L 09/06/20 15:43 Pulse Rate 56 L 09/06/20 15:43 Respiratory Rate 18 09/06/20 15:43 Blood Pressure 144/81 H 09/06/20 15:43 Pulse Oximetry 99 09/06/20 15:43 Temperature 97.4 F L 09/06/20 15:43 Pulse Rate 48 L 09/06/20 17:32 Respiratory Rate 15 09/06/20 1
[2020-09-06] MEDS: DEXAMETHASONE SOD PHOS INJ 4 MG/ML VIAL 10 MG IV PUSH (18:54)
== END 2020-09-06 19:22 | disposition home or self-care (01) ==
PROVIDERS: Emergency Medicine Emergency Medical Services; Emergency Provider Emergency Medicine; PCP Family Medicine
DX: R51.9 Headache, unspecified (principal); M54.2 Cervicalgia; Z87.891 Personal history of nicotine dependence; Z87.442 Personal history of urinary calculi
CPT/HCPCS: 36415; 70450; 70496; 70498; 80048; 84484; 85025; 85610; 85730; 93005; 96374; 96375; 99284; A9270; J1100; J1885; Q9967

== ENCOUNTER 2021-07-11 19:43 | Emergency (ER) | payer OTHER, SELFPAY ==
--- NOTE | ~2021-07-11 | XR_ITS ---
EXAMINATION: XR chest 2V DATE: 07/11/2021 20:13 INDICATION: Chest pressure. TECHNIQUE: Frontal and lateral views of the chest were obtained. COMPARISON: Chest 2 views 05/02/2020 FINDINGS: The chest demonstrates clear lungs without pneumonia, pleural effusion, or pneumothorax. Th e heart size is normal. There is mild chronic anterior wedging of multiple vertebral bodies. IMPRESSION: 1. No acute cardiopulmonary disease. Reviewed, dictated and finalized at location A.
--- NOTE | 2021-07-11 19:46 | ECG_ITS ---
Measurements Intervals [place] Rate: 51 P: 22 DC: 192 QRS: -17 QRSD: 88 T: 2 QT: 426 QTc: 393 Interpretive Statements SINUS BRADYCARDIA BORDERLINE ECG Electronically Signed On 07-11-2021 19:50:47 CDT by Amandeep Wooten D.O.
[2021-07-11 19:50] VITALS: BP 145/83; PULSE 50; RESP 18; TEMP 36.4; O2SAT 100
[2021-07-11 20:56] LABS: Basophils Percent Auto 0.5 % (0.2-1.2); Eosinophils Absolute Auto 0.2 K/mm3 (0-0.3); Eosinophils Percent Auto 2.8 % (0-4.4); Hematocrit 42.2 % (42.0-52.0); Hemoglobin 13.9 g/dL (14.0-18.0); Immature Granulocyte Absolute 0.02 K/mm3 (0.00-0.031); Immature Granulocyte Percent A 0.3 % (0-0.5); Lymphocytes Percent Auto 38.3 % (18.3-44.2); Mean Corpuscular HGB Conc 32.9 g/dl (32-36); Mean Corpuscular Hemoglobin 30.7 pg (26-34); Mean Corpuscular Volume 93.2 fl (80-100); Mean Platelet Volume 10.7 fl (7.4-10.4); Monocytes Absolute Auto 0.6 K/mm3 (0.1-0.6); Neutrophils Absolute Auto 3.8 K/mm3 (1.3-6.7); Neutrophils Percent Auto 50.1 % (45.5-73.1); Platelet Count Result 204 k/mm3 (150-375); Red Blood Count 4.53 M/mm3 (4.6-6.20); Red Cell Distribution Width 12.5 % (11.5-14.5); White Blood Count 7.6 K/mm3 (4.5-10.0)
[2021-07-11 21:00] VITALS: PULSE 49
[2021-07-11 21:01] VITALS: BP 152/94; PULSE 47; RESP 16; O2SAT 97
[2021-07-11] MEDS: ASPIRIN 81 MG CHEWABLE TABLET 324 MG PO (21:02)
[2021-07-11 21:05] LABS: Alanine Aminotransferase 16 U/L (4-50); Albumin Level 4.3 g/dL (3.5-5.1); Alkaline Phosphatase 75 U/L (38-126); Anion Gap 5 mmol/L (8-16); Aspartate Amino Transferase 25 U/L (17-59); Bilirubin,Total 0.5 mg/dL (0.2-1.3); Blood Urea Nitrogen 16 mg/dL (9-20); Carbon Dioxide 25 mmol/L (22-30); Chloride 106 mmol/L (98-107); Estimated CRCL calculation 79 ml/min; Estimated Glomerular Filt Rate > 60; Glucose 99 mg/dL (65-110); Lipase 123 U/L (23-300); Potassium 3.9 mmol/L (3.4-5.0); Sodium 136 mmol/L (137-145)
[2021-07-11 21:10] VITALS: O2SAT 100
[2021-07-11 21:14] LABS: INR 1.1; Prothrombin Time 13.5 Seconds (11.1-14.7)
[2021-07-11 21:15] LABS: Partial Thromboplastin Time 37.8 SECONDS (22.3-36.8)
[2021-07-11 21:17] LABS: Troponin I < 0.012 ng/mL (0.000-0.034)
[2021-07-11 22:08] VITALS: BP 130/95; PULSE 52; RESP 18; O2SAT 99
[2021-07-11 23:03] LABS: Troponin I < 0.012 ng/mL (0.000-0.034)
[2021-07-11 23:21] VITALS: BP 135/96; PULSE 47; RESP 18; O2SAT 99
--- NOTE | 2021-07-11 23:42 | ED.GENADULT ---
HPI - General Adult General Chief complaint: Chest Pain Stated complaint: CHEST PRESSURE Time Seen by Provider: 07/11/21 20:47 History of Present Illness HPI narrative: Patient is a 51-year-old gentleman who presents the emergency department with chief complaint of chest pain. Patient reports that he has been having some discomfort in his chest and tingling in his arm for some time the patient states that today he started having some tightness in his chest that is resolved at this time. Patient states that he had a stress test a few years ago and did not require a cardiac catheterization. The patient reports the pain is not improved by anything other than it will spontaneously improved. Patient states it is not worsened by exertion. Related Data Home Medications Medication Instructions Recorded Confirmed idzhgaw-rmet-gwwqe-oreg-capryl 1 cap PO 09/06/20 04/17/21 ibuprofen 600 mg tablet 600 mg PO Q12H PRN tablet 11/05/20 04/17/21 Allergies Allergy/AdvReac Type Severity Reaction Status Date / Time No Known Allergies Allergy Verified 04/17/21 13:20 Review of Systems Review of Systems: A 10 system review of systems was completed on the patient and is negative except for what is stated in the HPI. Nursing and ancillary documentation was reviewed. FORMERLY [facility], [facility] Past Medical History Medical History Chronic neck and back pain Hearing loss, bilateral using hearing aids History of kidney stones Kidney stones Lumbar spondylosis Surgical History Surgical History H/O hand surgery (~2009) left H/O inguinal hernia repair (~1978) b/l - 1980s H/O lateral meniscus repair of left knee (~2010) Family History Family History Mother Diabetes mellitus Family history of malignant neoplasm of ovary Father Family history of congestive heart failure Social History Social History Social History: Lives with and daughter Smoking packs per day: 1 Smoking cigarettes per day: 20.0 Years smoked: 15 Smoking pack-years: 15.00 Smoking status: Former smoker Tobacco type: cigarettes Second hand tobacco smoke exposure: No Smoking end date: 03/08/01 Alcohol intake: current Alcohol use details: consumes 1 beer every three weeks Substance use: never Substance use type: does not use Gender identity (if verbalized by the patient): Male Sexual Orientation (if Verbalized by the Patient): Straight or Heterosexual Agree to blood products: Yes Exam Narrative: GENERAL: Well-appearing, well-nourished, and in no acute distress. HEAD: Normocephalic, atraumatic. EYES: PERRLA and EOMI. ENT: Nares clear, no rhinorrhea or epistaxis. Mucous membranes moist. NECK: Supple. CHEST: Clear to auscultation. No respiratory distress. HEART: Regular rate and rhythm. No murmur heard. Normal peripheral pulses. ABDOMEN: Soft, nontender, nondistended, normal active bowel sounds. EXTREMITIES: Normal range of motion. No edema. SKIN: Warm, dry, no rash. NEURO: No focal deficits. Alert and oriented x3. PSYCH: Normal mood and affect. Course Course Emergency Course: EKG interpreted by me as heart rate of [address] elevation or ST depression Vital Signs Vital signs: Vital Signs Temperature 36.4 C L 07/11/21 19:50 Pulse Rate 50 L 07/11/21 19:50 Respiratory Rate 18 07/11/21 19:50 Blood Pressure 145/83 H 07/11/21 19:50 Pulse Oximetry 100 07/11/21 19:50 Temperature 36.4 C L 07/11/21 19:50 Pulse Rate 47 L 07/11/21 23:21 Respiratory Rate 18 07/11/21 23:21 Blood Pressure 135/96 H 07/11/21 23:21 Pulse Oximetry 99 07/11/21 23:21 Medical Decision Making Vital Signs Vital Signs: Vital Signs Temperature 36.4 C L 07/11/21 19:50 Pulse Ra
[2021-07-12 00:04] VITALS: BP 133/84; PULSE 53; RESP 18; O2SAT 97
== END 2021-07-12 00:05 | disposition home or self-care (01) ==
PROVIDERS: Emergency Provider Emergency Medicine; PCP Family Medicine
DX: R07.89 Other chest pain (principal); Z87.442 Personal history of urinary calculi; Z87.891 Personal history of nicotine dependence; R00.1 Bradycardia, unspecified
CPT/HCPCS: 36415; 71046; 80053; 83690; 84484; 85025; 85610; 85730; 93005; 99284; A9270

== ENCOUNTER 2021-09-19 19:18 | Emergency (ER) | payer OTHER, SELFPAY ==
--- NOTE | 2021-09-19 19:29 | ED.WOUNDLAC ---
HPI - Wound/Laceration General Chief Complaint: Wound/Laceration Stated Complaint: Rt Middle Finger Injury Time Seen by Provider: 09/19/21 19:30 Source: patient, RN notes reviewed and old records reviewed Mode of arrival: ambulatory History of Present Illness HPI narrative: 51-year-old male presents to [facility] care with complaints of laceration to the right middle finger anterior aspect PIP when he dropped a crawl space door on his finger causing a 1cm laceration which is flap type of laceration. Patient reports that his tetanus is up to date from Oct. Patient has full mobility of his right middle finger with no tingling or numbness voiced to finger, nail bed has brisk capillary refill. Onset (ago): hour(s) (Within past hour prior to arrival) Location: other (dorsal PIP area right middle finger) Patient tetanus UTD: Yes Treatments prior to arrival: bandage Related Data Home Medications Medication Instructions Recorded Confirmed tumeric 100 mg-russell 150 mg-olive 1 cap PO DAILY 09/06/20 09/19/21 50 mg-oreg 150 mg-caprylate capsule ibuprofen 600 mg tablet (IBU) 600 mg PO Q12H PRN fever or pain 11/05/20 09/19/21 Allergies Allergy/AdvReac Type Severity Reaction Status Date / Time No Known Allergies Allergy Verified 09/19/21 19:28 Review of Systems Review of Systems: CONSTITUTIONAL: Denies fever, chills, or sweats. EYES: Denies visual changes, redness, or discharge. ENT: Denies rhinorrhea, congestion, sore throat, or otalgia. CARDIOVASCULAR: Denies chest pain, palpitations, or edema. RESPIRATORY: Denies cough or dyspnea. GASTROINTESTINAL: Denies abdominal pain, nausea, vomiting, or diarrhea. GENITOURINARY: Denies dysuria or hematuria. SKIN: Denies rash or itching.positive for laceration to right anterior middle finger at PIP, full mobility of finger noted no acute bleeding. MUSCULOSKELETAL: Denies back pain, joint pain, or myalgia. NEUROLOGIC: Denies headache, numbness, or weakness. PSYCHIATRIC: Denies anxiety or depression. All systems reviewed & are unremarkable except as noted in HPI and below PMFSH Past Medical History Medical History Chronic neck and back pain Hearing loss, bilateral using hearing aids History of kidney stones Kidney stones Lumbar spondylosis Surgical History Surgical History H/O hand surgery (~2009) left H/O inguinal hernia repair (~1978) b/l - H/O lateral meniscus repair of left knee (~2010) Family History Family History Mother Diabetes mellitus Family history of malignant neoplasm of ovary Father Family history of congestive heart failure Social History Social History Social History: Lives with and daughter Smoking packs per day: 1 Smoking cigarettes per day: 20.0 Years smoked: 15 Smoking pack-years: 15.00 Smoking status: Former smoker Tobacco type: cigarettes Second hand tobacco smoke exposure: No Smoking end date: 03/08/01 Alcohol intake: current Alcohol use details: consumes 1 beer every three weeks Substance use: never Substance use type: does not use Gender identity (if verbalized by the patient): Male Sexual Orientation (if Verbalized by the Patient): Straight or Heterosexual Agree to blood products: Yes Comments At time of signature, agree with nursing past medical, surgical, social and family history. There is no relevant family history pertinent to the presenting complaint Exam Narrative: GENERAL: Well-appearing, well-nourished, and in no acute distress. HEAD: Normocephalic, atraumatic. EYES: PERRLA and EOMI. ENT: Nares clear, no rhinorrhea or epistaxis. Mucous membranes moist.TM's normal good light reflex, throat pink with no lesions or exudates, no tonsil swelling NECK: Supple.no lymphadenopa
[2021-09-19 19:31] VITALS: BP 138/84; PULSE 54; RESP 20; TEMP 36.4; O2SAT 97
== END 2021-09-19 20:07 | disposition home or self-care (01) ==
PROVIDERS: Emergency Provider Registered Nurse; PCP Family Medicine
DX: S61.212A Laceration without foreign body of right middle finger without damage to nail, initial encounter (principal); W20.8XXA Other cause of strike by thrown, projected or falling object, initial encounter; Z87.891 Personal history of nicotine dependence; M47.816 Spondylosis without myelopathy or radiculopathy, lumbar region
CPT/HCPCS: 12001; 99213; G0463

== ENCOUNTER 2022-10-26 07:54 | Outpatient (CLI) | payer OTHER, SELFPAY | END 2022-10-26 07:55 | disposition home or self-care (01) | LOC: ANHAUDASC 07:55 | PROVIDERS: PCP Family Medicine; Visit Provider Family Medicine | DX: H93.19 Tinnitus, unspecified ear (principal); H90.3 Sensorineural hearing loss, bilateral | CPT/HCPCS: 92557; 92567 ==

== ENCOUNTER 2022-12-25 11:27 | Outpatient (RCR) | payer OTHER, SELFPAY | END 2022-12-25 23:59 | disposition home or self-care (01) | LOC: ANHAUDIO 11:27 | PROVIDERS: PCP Family Medicine; Visit Provider Family Medicine | DX: Z46.1 Encounter for fitting and adjustment of hearing aid (principal) | CPT/HCPCS: V5014; V5257 ==

== ENCOUNTER 2023-03-01 15:16 | Emergency (ER) | payer OTHER, SELFPAY ==
--- NOTE | ~2023-03-01 | XR_ITS ---
XR elbow LT min 3V 03/01/2023 15:34 INDICATION: Left elbow pain after fall PROCEDURE: 4 views left elbow COMPARISON: No prior studies for comparison. FINDINGS: Fracture, dislocation or subluxation is not identified. The soft tissues appear within norm al limits. No foreign bodies are identified. IMPRESSION: 1: NO ACUTE BONE OR JOINT ABNORMALITY IDENTIFIED. Reviewed, dictated and finalized at location A. 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
--- NOTE | ~2023-03-01 | XR_ITS ---
[[id number] ] INDICATION: Left rib pain after fall TECHNIQUE: Frontal projection of the upper left ribs, frontal projection of the lower left ribs, obli que projection of all the left ribs, frontal inspiratory chest x-ray for interpretation. FINDINGS: There are no displaced rib fractures identified. There are no soft tissue abnormality see n. The lungs are clear. IMPRESSION: 1:No acute displaced rib fractures. Reviewed, dictated and finalized at location A. ICAL TRIALS SPECIALIST
[2023-03-01 15:18] VITALS: BP 164/97; PULSE 57; RESP 18; TEMP 36.3; O2SAT 97
--- NOTE | 2023-03-01 15:50 | ED.FALL ---
HPI - Fall General Chief Complaint: Fall Stated Complaint: FALL DOWN STAIRS. Time Seen by Provider: 03/01/23 15:50 Source: patient Mode of arrival: ambulatory Limitations: no limitations History of Present Illness HPI Narrative: PATIENT DROVE HIMSELF TO THE EMERGENCY ROOM COMPLAINING OF LEFT ELBOW AND LEFT CHEST PAIN AFTER SLIPPING DOWN 6 [address]PS PRIOR TO ARRIVAL. HE DENIES OTHER INJURIES. NO BLOOD THINNER. Related Data Home Medications Medication Instructions Recorded Confirmed ibuprofen 600 mg tablet (IBU) 600 mg PO Q12H PRN fever or pain 11/05/20 09/19/21 Allergies Allergy/AdvReac Type Severity Reaction Status Date / Time No Known Allergies Allergy Verified 09/22/22 09:57 Review of Systems Review of Systems: All systems reviewed & are unremarkable except as noted in HPI and below PMFSH Past Medical History Medical History Chronic neck and back pain Hearing loss, bilateral using hearing aids History of kidney stones Kidney stones Lumbar spondylosis Surgical History Surgical History H/O hand surgery (~2009) left H/O inguinal hernia repair (~1978) b/l - 1980s H/O lateral meniscus repair of left knee (~2010) Family History Family History Mother Diabetes mellitus Family history of malignant neoplasm of ovary Father Family history of congestive heart failure Social History Social History Social History: Lives with and daughter Smoking packs per day: 1 Smoking cigarettes per day: 20.0 Years smoked: 15 Smoking pack-years: 15.00 Smoking status: Former smoker Tobacco type: cigarettes Second hand tobacco smoke exposure: No Smoking end date: 03/08/01 Alcohol intake: current Alcohol use details: consumes 1 beer every three weeks Substance use: never Substance use type: does not use Living arrangements: with family Occupation/Education: occupation Gender identity (if verbalized by the patient): Male Sexual Orientation (if Verbalized by the Patient): Straight or Heterosexual Agree to blood products: Yes Exam Narrative: GENERAL APPEARANCE: WELL-DEVELOPED, WELL-NOURISHED SKIN: NORMAL COLOR HEAD: NORMOCEPHALIC, NONTRAUMATIC EYES: CLEAR CONJUNCTIVA ENT: OROPHARYNX NORMAL, EARS NORMAL, NOSE NORMAL NECK: SUPPLE, NONTENDER CHEST AND RESPIRATORY: AIRWAY PATENT, NO RESPIRATORY DISTRESS, NO ACCESSORY MUSCLE USE. 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 HEART: REGULAR RATE/RHYTHM ABDOMEN: SOFT, NONTENDER, NO ORGANOMEGALY, QUIET BOWEL SOUNDS VASCULAR: NORMAL PERIPHERAL PULSES, NORMAL CAPILLARY REFILL. 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 PRODUCTION IS NORMAL TESTED, NO GROSS MOTOR DEFICIT Course Vital Signs Vital signs: Vital Signs Temperature 36.3 C L 03/01/23 15:18 Pulse Rate 57 L 03/01/23 15:18 Respiratory Rate 18 03/01/23 15:18 Blood Pressure 164/97 H 03/01/23 15:18 Pulse Oximetry 97 03/01/23 15:18 Oxygen Delivery Room Air 03/01/23 15:18 Temperature 36.3 C L 03/01/23 15:18 Pulse Rate 57 L 03/01/23 15:18 Respiratory Rate 18 03/01/23 15:18 Blood Pressure 164/97 H 03/01/23 15:18 Pulse Oximetry 97 03/01/23 15:18 Oxygen Delivery Room Air 03/01/23 15:18 MDM - Fall MDM Narrative Medical decision making narrative: PATIENT PRESENTS WITH THE
== END 2023-03-01 16:50 | disposition home or self-care (01) ==
PROVIDERS: Emergency Provider Emergency Medicine; PCP Family Medicine
DX: S50.02XA Contusion of left elbow, initial encounter (principal); S20.212A Contusion of left front wall of thorax, initial encounter; Z87.891 Personal history of nicotine dependence; W10.9XXA Fall (on) (from) unspecified stairs and steps, initial encounter
CPT/HCPCS: 71101; 73080; 99284

== ENCOUNTER 2024-02-01 07:48 | Emergency (ER) | payer OTHER, SELFPAY ==
--- NOTE | ~2024-02-01 | XR_ITS ---
EXAMINATION: XR knee RT min 4V DATE: 02/01/2024 08:25 INDICATION: Right knee pain. Fall. TECHNIQUE: 5 views of right knee were obtained. COMPARISON: None. FINDINGS: Alignment is normal. No fracture. There is mild tricompartmental osteoarthritis. There is a small knee joint effusion. There are loose bodies in the knee joint. IMPRESSION: 1. Mild right knee osteoarthritis. 2. Small right knee joint effusion with loose bodies. Reviewed, dictated and finalized at location A. NICAL ILL[employer]STRATOR
[2024-02-01 07:55] VITALS: BP 155/90; PULSE 65; RESP 18; TEMP 36.4; O2SAT 100
--- NOTE | 2024-02-01 09:14 | ED.LOWEXIN ---
HPI - Extremity Injury (Lower) General Chief Complaint: Extremity Injury, Lower Stated Complaint: leg injury Time Seen by Provider: 02/01/24 08:56 History of Present Illness HPI Narrative: Pt is a 53-year-old male who presents to the ER with right knee pain. He reports he was walking down a step, twisted and he heard a pop. Patient reports his knee gave out on him. He has full range of motion in the joint now, but endorses pain with straightening his knee and bending it at a 90 degree angle. He reports the pain shoots up to his right hip. He endorses swelling to the joint and reports he has done something similar to his left knee in the past. Patient denies any pertinent medical history this ER visit. He denies any saddle anesthesia, chest pain, shortness of breath, fevers. Related Data Home Medications Medication Instructions Recorded Confirmed ibuprofen 600 mg tablet (IBU) 600 mg PO Q12H PRN fever or pain 11/05/20 09/19/21 Allergies Allergy/AdvReac Type Severity Reaction Status Date / Time No Known Allergies Allergy Verified 02/01/24 07:56 Review of Systems Review of Systems: All systems reviewed & are unremarkable except as noted in HPI and below PMFSH Past Medical History Medical History Chronic neck and back pain Hearing loss, bilateral using hearing aids History of kidney stones Kidney stones Lumbar spondylosis Surgical History Surgical History H/O hand surgery (~2009) left H/O inguinal hernia repair (~1978) b/l - 1980s H/O lateral meniscus repair of left knee (~2010) Family History Family History Mother Diabetes mellitus Family history of malignant neoplasm of ovary Father Family history of congestive heart failure Social History Social History Social History: Lives with and daughter Smoking packs per day: 1 Smoking cigarettes per day: 20.0 Years smoked: 15 Smoking pack-years: 15.00 Smoking status: Former smoker Tobacco type: cigarettes Second hand tobacco smoke exposure: No Smoking end date: 03/08/01 Alcohol intake: current Alcohol use details: consumes 1 beer every three weeks Substance use: never Substance use type: does not use Living arrangements: with family Occupation/Education: occupation Gender identity (if verbalized by the patient): Male Sexual Orientation (if Verbalized by the Patient): Straight or Heterosexual Agree to blood products: Yes Exam Narrative: GENERAL: Well appearing, well-nourished, non-toxic, in no acute distress. HEAD: Normocephalic, atraumatic. NECK: Supple. No adenopathy, no masses. RESPIRATORY: Airway patent, respirations nonlabored. Clear to auscultation bilaterally, no rales, rhonchi, wheezing. CARDIOVASCULAR: Regular rate and rhythm without murmurs, rubs, or gallops. Peripheral pulses 2+ and equal bilaterally. ABDOMINAL: Soft, nontender, nondistended, no hepatosplenomegaly. Normoactive BS. MUSCULOSKELETAL: Moves all extremities. Strength/ROM intact without gross deformities. R knee joint full ROM, slightly edematous around the knee cap, endorses pain with flexion to a 90 degree angle, extension. Denies pain with abduction and adduction. SKIN: Warm, dry, normal color. No rashes. NEURO: A&O X3. Speech clear. Cranial nerves II-XII grossly intact. Steady gait. No ataxic movements. PSYCHIATRIC: Appropriate mood and affect. Normal interaction. Course Vital Signs Vital signs: Vital Signs Temperature 36.4 C 02/01/24 07:55 Pulse Rate 65 02/01/24 07:55 Respiratory Rate 18 02/01/24 07:55 Blood Pressure 155/90 H 02/01/24 07:55 Pulse Oximetry 100 02/01/24 07:55 Temperature 36.4 C 02/01/24 07:55 Pulse Rate 65 02/01/24 07:55 Respiratory Rate 18 02/01/24 07:55 Blood Pressure 155/90 H 02/01/24 07:55 Pulse Oximetry 100 02/01/24 07:55 MDM - Extremity Injury (Lower) MDM Narrative Medical decision making narrative: Pt is a 53-year-old male who presents to the ER with right knee pain. He reports he was walking down a step, twisted and he heard a pop. Patient reports his knee gave out on him. He has full range of motion in the joint now, but endorses pain with straightening his knee and bending it at a 90 degree angle. He reports the pain shoots up to his right hip. He endorses swelling to the joint and reports he has done something similar to his left knee in the past. Patient denies any pertinent medical history this ER visit. He denies any saddle anesthesia, chest pain, shortness of breath, fevers. Labs Ordered: None needed Imaging Ordered: R knee x-ray Results: R knee x-ray indicates Mild right knee osteoarthritis. 2. Small right knee joint effusion with loose bodies. Diagnosis: R knee sprain Plan: X-ray results shared with patient and his family. Patient reports his pain has improved after pain medication administration. He should follow-up orthopedics for further imaging and evaluation. Patient and his family verbalized understanding and are in agreement with plan. Differential Diagnosis Differential diagnosis: Likely acute internal derangement of knee and other (knee strain, knee sprain, torn meniscus) Imaging Data Attestation: I personally reviewed and interpreted this imaging study as follows: Radiologist's impression: Impressions Knee X-Ray 02/01/24 08:30 IMPRESSION: 1. Mild right knee osteoarthritis. 2. Small right knee joint effusion with loose bodies. Discharge Plan Discharge Clinical Impression: Acute internal derangement of knee, Strain of knee and leg, right Patient Disposition: Home, Self-Care Condition: Stable Instructions: Antibiotic Form Additional Instructions: Please follow-up with orthopedics as soon as possible. Keep your knee immobilizer on until you see orthopedics. Please treat pain with ibuprofen, ice, elevation. Return to the ER with any worsening symptoms. Prescriptions: No Action ibuprofen [IBU] 600 mg tablet 600 mg PO Q12H PRN (Reason: fever or pain) esomeprazole magnesium 40 mg capsule,delayed release(DR/EC) 40 mg PO DAILY Qty: 90 0RF Follow-up/Referrals: Thong Turner MD [Physician] - (orthopedics) Gail,MD Brandie [Primary Care Provider] - Time of Disposition: 10:56
[2024-02-01] MEDS: HYDROcodone/acetaminophen (*CRX) 5-325 MG TABLET 1 TAB PO (09:22)
[2024-02-01] MEDS: KETOROLAC (*BKC) 60 MG/2 ML VIAL IM (09:22)
== END 2024-02-01 11:13 | disposition home or self-care (01) ==
PROVIDERS: Emergency Provider Registered Nurse; PCP Family Medicine
DX: M23.91 Unspecified internal derangement of right knee (principal); S86.911A Strain of unspecified muscle(s) and tendon(s) at lower leg level, right leg, initial encounter; Z87.442 Personal history of urinary calculi; Z87.891 Personal history of nicotine dependence; X50.9XXA Other and unspecified overexertion or strenuous movements or postures, initial encounter
CPT/HCPCS: 73564; 96372; 99283; A9270; J1885